=== PATIENT | male | born 1945 | race Caucasian/White ===

== ENCOUNTER 2021-10-03 07:43 | Day surgery (SDC) | payer OTHER ==
[~2021-10-03] VITALS: Ht 175.3 cm; Wt 68.7 kg
[~2021-10-03 07:43] MED LIST: Clobex59 ML; Fluocinonide15 GM; IBUP400 PO; NYSTOP15 GM; Percocet 5-3251 EACH PO; SIMV40 PO; SPIR25; Simvastatin20 MG PO; TRAZ100 PO; TRAZ150T57
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
== END 2021-10-03 10:01 | disposition home or self-care (01) ==
LOC: ORSCSDS 07:43
PROVIDERS: Internal Medicine Gastroenterology
PROC: 0DBN8ZX Excision of Sigmoid Colon, Via Natural or Artificial Opening Endoscopic, Diagnostic (ICD-10-PCS; principal; 2021-10-03 09:00)
PROC: 0DBL8ZX Excision of Transverse Colon, Via Natural or Artificial Opening Endoscopic, Diagnostic (ICD-10-PCS; principal; 2021-10-03 09:00)
PROC: 0DBM8ZX Excision of Descending Colon, Via Natural or Artificial Opening Endoscopic, Diagnostic (ICD-10-PCS; principal; 2021-10-03 09:00)
DX: Z12.11 Encounter for screening for malignant neoplasm of colon (principal); Z86.010 Personal history of colon polyps; K63.5 Polyp of colon; D12.4 Benign neoplasm of descending colon; D12.5 Benign neoplasm of sigmoid colon; K57.30 Diverticulosis of large intestine without perforation or abscess without bleeding; K21.9 Gastro-esophageal reflux disease without esophagitis; Z85.46 Personal history of malignant neoplasm of prostate; F17.210 Nicotine dependence, cigarettes, uncomplicated; Z79.899 Other long term (current) drug therapy
CPT/HCPCS: 88305; J2704; J7120

== ENCOUNTER → 2022-06-21 | Outpatient (CLI) | payer OTHER | LOC: LAB 13:59 → LAB SHORT 13:59 | DX: C61 Malignant neoplasm of prostate (principal); N34.2 Other urethritis | CPT/HCPCS: 87086 ==

== ENCOUNTER → 2025-03-08 | Outpatient (CLI) | payer OTHER ==
[2025-03-08 20:45] LABS: Creatinine, Urine Random 128.0 mg/dL (27.00-270.00); Microalb/Creat Ratio UR, Rand 5.516 mg/g (0.000-30.000); Microalbumin, Random Urine 7.06 mg/L (0.000-20.000)
== END ==
LOC: LAB SHORT 19:33 → LAB 19:33
PROVIDERS: Family Medicine
DX: E11.69 Type 2 diabetes mellitus with other specified complication (principal); E78.5 Hyperlipidemia, unspecified
CPT/HCPCS: 82043; 82570